=== PATIENT | female | born 1935 | race African-American/Black ===

== ENCOUNTER 2018-10-02 15:46 | Inpatient (IN) ==
[2018-10-02 16:31] LABS: Basophils # 0.1 10*3/uL (0.0-0.2); Basophils % 0.5 % (0.0-0.8); Eosinophils % 0.3 % (0.00-10.9); Hematocrit 43.3 VOL% (35.7-47.0); Hemoglobin 14.3 GM/DL (12.0-16.0); Immature Granulocytes % 0.3 %; Immature Granulocytes Absolute 0.03 #; Lymphocytes # 1.4 10*3/uL (1.4-4.0); Mean Corpuscular Hemoglobin 26 PG (27-34); Mean Corpuscular Volume 77.3 FL (87-102); Mean Platelet Volume 12.3 FL (9.6-12.0); Monocytes # 0.5 10*3/uL (0.11-0.8); Neutrophils # 8.8 10*3/uL (1.4-7.4); Neutrophils % 80.9 % (38.7-73.9); Platelet Count 285 T/CUMM (130-400); Red Cell Distribution Width 17.6 % (9.3-17.3); White Blood Count 10.9 T/CUMM (4-12)
[2018-10-02 17:06] LABS: Alanine Aminotransferase 20 U/L (13-56); Albumin 3.7 G/DL (3.4-5.0); Alkaline Phosphatase 368 U/L (45-117); Amylase 75 U/L (25-115); Aspartate Amino Transferase 21 U/L (0-37); Bilirubin,Total < 0.39 MG/DL (0.2-1.0); Blood Urea Nitrogen 17 MG/DL (7-18); Calcium 9.4 MG/DL (8.5-10.1); Glucose 100 MG/DL (74-106); Osmolality,Calculated 265.5 MOS/KG (273-304); Potassium 3.6 MMOL/L (3.5-5.1); Sodium 132 MMOL/L (136-145); Total Protein 8.3 G/DL (6.4-8.3)
[2018-10-02] MEDS ORDERED: ONDANSETRON 4 MG/2 ML VIAL IV STA (17:32)
[2018-10-02] MEDS ORDERED: METHOCARBAMOL INJ 1,000 MG in SODIUM CHLORIDE 0.9% 100 ML IV STA (17:32)
[2018-10-02] MEDS ORDERED: fentaNYL 100 MCG/2 ML VIAL IV STA (17:32)
[2018-10-02] MEDS ORDERED: MORPHINE 4 MG/1 ML VIAL IV PRN (19:03)
[2018-10-02] MEDS ORDERED: ONDANSETRON 4 MG/2 ML VIAL IV PRN (19:03)
[2018-10-02] MEDS ORDERED: METHOCARBAMOL 1,000 MG/10 ML VIAL ONE (19:06)
[2018-10-02 19:35] LABS: Apearance,Urine CLEAR (Clear); Bacteria,Urine Many /HPF (Few); Bilirubin,Urine Negative (Negative); Blood, Urine Small mg/dL (Negative); Glucose,Urine (UA) Negative (Negative); Hyaline Casts,Urine 1 /LPF (0-3); Ketones,Urine Negative (Negative); Nitrite,Urine Negative (Negative); Protein,Urine Negative; Urine Color Straw (Yellow); Urine Specific Gravity 1.003 (1.001-1.035); Urine Urobilinogen < 2.0 EU/DL (0.2-1.0); WBC,Urine <1 /HPF (0-6)
[2018-10-02] MEDS: SODIUM CHLORIDE 0.9% 1,000 ML IV SCH (21:39)
[2018-10-02] MEDS: clonazePAM 0.5 MG TABLET PO SCH (21:43)
[2018-10-02] MEDS: FAMOTIDINE 20 MG TABLET PO SCH (21:43)
[2018-10-02] MEDS: DOCUSATE SODIUM 100 MG CAPSULE PO SCH (21:43)
[2018-10-02] MEDS: ENOXAPARIN 40 MG/0.4 ML SYRINGE SUBCUT SCH (21:44)
[2018-10-03 04:59] LABS: Basophils % 0.5 % (0.0-0.8); Eosinophils # 0.1 10*3/uL (0.0-0.87); Eosinophils % 1.4 % (0.00-10.9); Hematocrit 37.4 VOL% (35.7-47.0); Hemoglobin 12.4 GM/DL (12.0-16.0); Immature Granulocytes % 0.3 %; Immature Granulocytes Absolute 0.03 #; Lymphocytes # 1.5 10*3/uL (1.4-4.0); Lymphocytes % 16.5 % (21.3-54.2); Mean Corpuscular HGB Conc 33.2 GM/DL (32-36); Mean Corpuscular Hemoglobin 26 PG (27-34); Mean Corpuscular Volume 77.4 FL (87-102); Monocytes # 0.7 10*3/uL (0.11-0.8); Monocytes % 7.7 % (1.7-12.7); Neutrophils # 6.5 10*3/uL (1.4-7.4); Neutrophils % 73.6 % (38.7-73.9); Platelet Count 263 T/CUMM (130-400); Red Blood Count 4.83 MC/CUMM (3.8-5.5); Red Cell Distribution Width 17.2 % (9.3-17.3); White Blood Count 8.8 T/CUMM (4-12)
[2018-10-03 05:07] LABS: Calcium 8.6 MG/DL (8.5-10.1); Potassium 3.5 MMOL/L (3.5-5.1)
[2018-10-03] MEDS: POTASSIUM CHLORIDE 20 MEQ TABLET PO SCH (09:36)
[2018-10-03] MEDS: FAMOTIDINE 20 MG TABLET PO SCH ×2 (09:36→21:05)
[2018-10-03] MEDS: clonazePAM 0.5 MG TABLET PO SCH ×2 (09:36→21:05)
[2018-10-03] MEDS: ENALAPRIL 20 MG TABLET PO SCH ×3 (09:36→21:14)
[2018-10-03] MEDS: amLODIPine 10 MG TABLET PO SCH (09:36)
[2018-10-03] MEDS: hydroCHLOROthiazide 25 MG TABLET PO SCH (09:36)
[2018-10-03] MEDS: DOCUSATE SODIUM 100 MG CAPSULE PO SCH ×2 (09:36→21:05)
[2018-10-03 09:52] LABS: Total Protein 7.5 G/DL (6.4-8.3)
[2018-10-03 10:15] LABS: PT Patient Result 10.7 SECS
[2018-10-03 10:33] LABS: Immuno Free Light Chain Kappa 1.4 MG/DL (0.33-1.94); Immuno Free Light Chain Lambda 60.15 MG/DL (0.57-2.63); Immuno Free Light Chain Ratio 0.02 MG/DL (0.26-1.65)
[2018-10-03 12:19] LABS: Total Protein (Chem) 7.5 G/DL (6.4-8.3)
[2018-10-03] MEDS ORDERED: fentaNYL 25 MCG/HR PATCH TRANSDERM SCH (15:30)
[2018-10-03] MEDS: SODIUM CHLORIDE 0.9% 1,000 ML IV SCH ×2 (18:12)
[2018-10-03] MEDS: ENOXAPARIN 40 MG/0.4 ML SYRINGE SUBCUT SCH (21:07)
[2018-10-04] MEDS: SODIUM CHLORIDE 0.9% 1,000 ML IV SCH ×2 (04:00→17:04)
[2018-10-04] MEDS ORDERED: DIAZEPAM 5 MG TABLET PO ONE (09:09)
[2018-10-04 09:21] LABS: Albumin (SPE) 4.5 G/DL (3.2-5.3); Albumin (SPE) Rel % 60.2 %; Alpha 1 (SPE) 0.2 G/DL (0.1-0.4); Alpha 1 (SPE) Rel % 2.7 %
[2018-10-04 09:22] LABS: Alpha 2 (SPE) 1.1 G/DL (0.4-1.0); Alpha 2 (SPE) Rel % 14.6 %; Beta (SPE) 0.7 G/DL (0.5-1.1); Beta (SPE) Rel % 9.8 %; Gamma (SPE) Rel % 12.7 %
[2018-10-04] MEDS ORDERED: POLYETHYLENE GLYCOL POWDER 17 GM PACK PO PRN (09:55)
[2018-10-04] MEDS ORDERED: HEPARIN 5,000 UNIT/1 ML VIAL ONE (11:45)
[2018-10-04] MEDS: ENALAPRIL 20 MG TABLET PO SCH (13:47)
[2018-10-04] MEDS: DOCUSATE SODIUM 100 MG CAPSULE PO SCH ×2 (13:47→20:20)
[2018-10-04] MEDS: FAMOTIDINE 20 MG TABLET PO SCH ×2 (13:47→20:19)
[2018-10-04] MEDS: clonazePAM 0.5 MG TABLET PO SCH ×2 (13:47→20:19)
[2018-10-04] MEDS: hydroCHLOROthiazide 25 MG TABLET PO SCH (13:50)
[2018-10-04] MEDS: POTASSIUM CHLORIDE 20 MEQ TABLET PO SCH (13:50)
[2018-10-04] MEDS: amLODIPine 10 MG TABLET PO SCH (13:50)
[2018-10-04] MEDS ORDERED: ZOLEDRONIC ACID 4 MG in PREMIX 1 EACH IV ONE (14:26)
[2018-10-04] MEDS: CALCIUM (CARBONATE)/VITAMIN D 600 MG-400 UNIT TABLET PO SCH ×2 (17:03→20:19)
[2018-10-04] MEDS: ENOXAPARIN 40 MG/0.4 ML SYRINGE SUBCUT SCH (20:23)
[2018-10-04] MEDS: ENALAPRIL 10 MG TABLET PO SCH (20:25)
[2018-10-05] MEDS: SODIUM CHLORIDE 0.9% 1,000 ML IV SCH ×2 (02:01→14:35)
[2018-10-05] MEDS: ENALAPRIL 10 MG TABLET PO SCH (09:06)
[2018-10-05] MEDS: CALCIUM (CARBONATE)/VITAMIN D 600 MG-400 UNIT TABLET PO SCH (09:06)
[2018-10-05] MEDS: clonazePAM 0.5 MG TABLET PO SCH (09:06)
[2018-10-05] MEDS: hydroCHLOROthiazide 25 MG TABLET PO SCH (09:06)
[2018-10-05] MEDS: POTASSIUM CHLORIDE 20 MEQ TABLET PO SCH (09:06)
[2018-10-05] MEDS: amLODIPine 10 MG TABLET PO SCH (09:06)
[2018-10-05] MEDS: DOCUSATE SODIUM 100 MG CAPSULE PO SCH (09:07)
[2018-10-05] MEDS: FAMOTIDINE 20 MG TABLET PO SCH (09:07)
[2018-10-05 11:16] LABS: Cancer Antigen 125 8 U/mL (<46)
[2018-10-05 15:38] VITALS: BP 169/78
[2018-10-05 17:57] LABS: Total Protein 24 Hr Ur Result 400 MG/24HR (0-149.1); Total Volume,Urine 2000 ML (400-2000)
[2018-10-07 09:16] LABS: Breast Carcinoma Ag(CA 27.29) 110 U/mL (<=38.0)
[2018-10-09 08:28] LABS: 24 Hr Protein (Bench) 400 MG/24HR (0-149.1)
[2018-10-09 10:34] LABS: Albumin (UPE) 302.8 MG/24H; Albumin (UPE) Rel % 75.7 %; Gamma (UPE) 97.2 MG/24H
[2018-10-09 10:46] LABS: Gamma (UPE) Rel % 24.3 %
== END 2018-10-05 16:53 | disposition home or self-care (01) | DRG 948 ==
LOC: N.EDINP 15:46 → N.ED 15:46 → N.4E 20:04 → SUATTDRO 10-04 14:37
PROVIDERS: ADMIT Emergency Medicine; ATTEND Internal Medicine